=== PATIENT | male | born 1945 | race Hispanic/Latino ===

== ENCOUNTER 2018-07-16 08:59 | Outpatient (CLI) | payer MEDICARE ==
[2018-07-16 10:29] LABS: Hematocrit 45.9 % (35.5-45.6); Hemoglobin 15.6 gm/dl (11.8-15.2); Mean Corpuscular HGB Conc 34 % (32-34); Mean Corpuscular Volume 96 fl (84-94); Platelet Count 200 K/mm3 (140-440); Red Blood Count 4.79 M/mm3 (3.65-5.03); Red Cell Distribution Width 14.1 % (13.2-15.2)
[2018-07-16 10:48] LABS: Alanine Aminotransferase 11 units/L (7-56); Albumin 3.9 g/dL (3.9-5); BUN/Creatinine Ratio 20; Blood Urea Nitrogen 14 mg/dL (9-20); Calcium 9.4 mg/dL (8.4-10.2); Chol/HDL Ratio 5.15 %; HDL Cholesterol 39 mg/dL (40-59); Hemolysis Index 5; LDL Cholesterol,Direct 153 mg/dL (50-130)
[2018-07-21 12:57] LABS: Vitamin D, 25-OH, D2 <4 ng/mL
== END 2018-07-16 09:00 | disposition home or self-care (01) ==
LOC: LAB 08:59
PROVIDERS: ATTEND Internal Medicine
DX: Z00.01 Encounter for general adult medical examination with abnormal findings (principal); E78.5 Hyperlipidemia, unspecified; E55.9 Vitamin D deficiency, unspecified; R73.9 Hyperglycemia, unspecified; I10 Essential (primary) hypertension
CPT/HCPCS: 36415; 80053; 80061; 82306; 82607; 83036; 84153; 84443; 85027

== ENCOUNTER 2018-07-23 09:34 | Outpatient (CLI) | payer MEDICARE ==
--- NOTE | 2018-07-23 10:19 | XRay Report ---
AP PELVIS: HISTORY: Pelvic fracture. No comparison at this facility. Bone mineralization is normal. 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 Mildly displaced fracture of the right pubic bone is also suspected but poorly imaged secondary to projection. The pelvic rami and iliac bones appear intact. The sacrum and SI joints are unremarkable. There is normal articulation of both hips. Mild osteoarthritis is noted. There also appears to be a nondisplaced fracture of the right L5 transverse process. 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 Right pubic bone fracture is suspected. Right L5 transverse process fracture.
== END 2018-07-23 09:35 | disposition home or self-care (01) ==
LOC: XRAY 09:34
PROVIDERS: ATTEND Internal Medicine
DX: S32.059A Unspecified fracture of fifth lumbar vertebra, initial encounter for closed fracture (principal); X58.XXXA Exposure to other specified factors, initial encounter; Y93.89 Activity, other specified; Y92.89 Other specified places as the place of occurrence of the external cause; Y99.8 Other external cause status
CPT/HCPCS: 72170

== ENCOUNTER 2019-03-17 11:12 | Outpatient (CLI) | payer MEDICARE ==
[2019-03-17 13:11] LABS: Chol/HDL Ratio 2.97 %
== END 2019-03-17 11:13 | disposition home or self-care (01) ==
LOC: LAB 11:12
PROVIDERS: ATTEND Internal Medicine
DX: E87.6 Hypokalemia (principal); E78.5 Hyperlipidemia, unspecified
CPT/HCPCS: 36415; 80061; 84132

== ENCOUNTER 2021-09-22 10:54 | Outpatient (CLI) | payer MEDICARE ==
--- NOTE | 2021-09-22 14:36 | XRay Report ---
Left shoulder 3 views INDICATION: Pain FINDINGS: Glenohumeral joint and AC joint appear normal. No acute fracture or dislocation. Signer Name: Ja De León MD Signed: 09/22/2021 2:31 PM Workstation Name: [id number]
--- NOTE | 2021-09-22 16:26 | Vascular Lab Report ---
DUPLEX DOPPLER LOWER EXTREMITY ARTERIAL, BILATERAL INDICATION / CLINICAL INFORMATION: I73.9 PERIPHERAL VAS DISEASE UNSPECIFIED. TECHNIQUE: Arterial duplex examination of both lower extremities performed using B-mode, color flow a nd spectral Doppler assessment. FINDINGS: RIGHT: Common Femoral Artery: PSV 170 cm/sec. Biphasic waveform. Proximal SFA: PSV 179 cm/sec. Biphasic waveform. Mid SFA: PSV 140 cm/sec. Biphasic waveform. Distal SFA: PSV 89 cm/sec. Biphasic waveform. Popliteal Artery: PSV 66 cm/sec. Biphasic waveform. Posterior Tibial Artery: PSV 43 cm/sec. Biphasic waveform. Dorsalis Pedis Artery: PSV 62 cm/sec. Biphasic waveform. LEFT: Common Femoral Artery: PSV 237 cm/sec. Biphasic waveform. Proximal SFA: Absent color Doppler blood flow. Mid SFA: PSV 39 cm/sec. Monophasic waveform. Distal SFA: PSV 31 cm/sec. Monophasic waveform. Popliteal Artery: PSV 39 cm/sec. Monophasic waveform. Posterior Tibial Artery: PSV 40 cm/sec. Monophasic waveform. Dorsalis Pedis Artery: PSV 16 cm/sec. Monophasic waveform. ADDITIONAL FINDINGS: None. RIGHT YAMILE: Not calculated. LEFT YAMILE: Not calculated. IMPRESSION: 1. Moderate to significant atherosclerotic calcification is noted throughout both lower extremities, left greater than right. 2. Hemodynamically significant stenosis is visualized in the left common femoral artery with occlusio n of the proximal femoral artery. There is reconstitution of flow at the left mid femoral artery with associated dampened velocities and abnormal monophasic waveforms distally. Ankle-Brachial Index (YAMILE): - Calcified arteries > 1.4 - Normal = 0.9-1.4 - Mild PAD = 0.7-0.89 - Moderate PAD = 0.51-0.69 - Severe PAD < 0.5 Doppler Waveform: - Triphasic is normal. - Biphasic is abnormal if clear transition from triphasic signal along vascular tree. - Monophasic is abnormal. Scribed by: Viridiana Lemos RDMS, LAURAT, [place] Scribed: 09/22/2021 2:27 PM I have reviewed the images, agree with this report, and edited this report as needed. Signer Name: Ja De León MD Signed: 09/22/2021 4:21 PM Workstation Name: [facility]
== END 2021-09-22 10:55 | disposition home or self-care (01) ==
LOC: VAS 10:54
PROVIDERS: ATTEND Internal Medicine
DX: M25.512 Pain in left shoulder (principal); I70.203 Unspecified atherosclerosis of native arteries of extremities, bilateral legs
CPT/HCPCS: 93925